=== PATIENT | male | born 1975 ===

== ENCOUNTER 2018-01-13 14:06 | Emergency (ER) | payer OTHER ==
[2018-01-13 14:29] VITALS: O2SAT 98
--- NOTE | 2018-01-13 15:29 | RAD ---
PROCEDURE: Right Hand Radiographs. HISTORY: fb palm by 2nd digit COMPARISON: None. FINDINGS: BONES: No acute fracture. 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 JOINTS: Unremarkable. SOFT TISSUES: Normal. OTHER FINDINGS: None. IMPRESSION: No demonstrated acute fracture or dislocation.
[2018-01-13] MEDS ORDERED: Tdap Vaccine 0.5 ml Vial (10-64 yrs) IM ONE ×2 (15:39→15:55)
--- NOTE | 2018-01-13 15:49 | C.PDOC ---
History Of Present Illness 42 y/o male presents to ED with pain and swellng to palm of right hand since thursday. pt reports he got a wooden splinter into right hand on thu, pulled most out, then use sharp end of melissa pin to dig out rest, unsure if any part remaining in hand. no redness to hand or fever. Time Seen by Provider: 01/13/18 14:30 Chief Complaint (Nursing): Abnormal Skin Integrity History Per: Patient History/Exam Limitations: no limitations Onset/Duration Of Symptoms: Days (5) Location Of Injury: Right: Arm (hand) Quality Of Symptoms: Painful, Swollen. denies: Draining Severity: Moderate Past Medical History Reviewed: Historical Data, Nursing Documentation, Vital Signs Vital Signs: Last Vital Signs Temp 98.0 F 01/13/18 16:22 Pulse 74 01/13/18 16:22 Resp 18 01/13/18 16:22 BP 124/84 01/13/18 16:22 Pulse Ox 98 01/13/18 16:22 - Medical History PMH: No Chronic Diseases Family History: States: Unknown Family Hx - Social History Hx Alcohol Use: No Hx Substance Use: No - Immunization History Hx Tetanus Toxoid Vaccination: No Hx Influenza Vaccination: No Hx Pneumococcal Vaccination: No Review Of Systems Constitutional: Negative for: Fever, Chills Musculoskeletal: Positive for: Hand Pain (right) Neurological: Negative for: Weakness, Numbness Physical Exam - Physical Exam Appears: Non-toxic, No Acute Distress Skin: Warm, Dry Extremity: Normal ROM, Other (swollen tender firm area to palm of hand distal to second mtp, no erythma, no drainage. no fluctuance. ) Pulses: Right Radial: Normal Neurological/Psych: Oriented x3, Normal Speech, Normal Cognition, Normal Motor, Normal Sensation ED Course And Treatment O2 Sat by Pulse Oximetry: 98 Medical Decision Making Medical Decision Making: pt with ?splinter in right hand; Disposition Counseled Patient/Family Regarding: Studies Performed, Diagnosis, Need For Followup, Rx Given - Disposition Referrals: Allison Hanson MD [Staff Provider] - Disposition: HOME/ ROUTINE Disposition Time: 15:47 Condition: GOOD Additional Instructions: Remoje la mano derecha en agua salada tibia varias veces al da. Dormont antibi ticos y medicamentos para el dolor segn lo recetado. Cori un seguimiento en carri clnica mdica o con un cirujano de mano si no mejora en carri semana. Please soak right hand in warm salty water several times a day. Take antibiotics and pain medication as prescribed. Follow up in medical clinic or with hand surgeon if not improving in a week. Prescriptions: Cephalexin [cephalexin] 500 mg PO Q6 #28 cap Ibuprofen [Motrin] 600 mg PO TID #30 tab Instructions: Foreign Body in Skin (DC) Forms: [facility] [employer] [facility] (Beninese), Gen Discharge Inst Beninese Print Language: MOLDOVAN - Clinical Impression Clinical Impression: Foreign body of hand, right
[2018-01-13 16:25] VITALS: BP 124/84; PULSE 74; RESP 18; TEMP 98
== END 2018-01-13 16:22 | disposition home or self-care (01) ==
LOC: C.ER 14:06
DX: S60.551A Superficial foreign body of right hand, initial encounter (principal); W45.8XXA Other foreign body or object entering through skin, initial encounter; Y92.9 Unspecified place or not applicable; Z23 Encounter for immunization